=== PATIENT | male | born 1980 | race Caucasian/White ===

== ENCOUNTER 2016-12-02 16:03 | Emergency (ER) | payer SELFPAY ==
[2016-12-02 16:19] VITALS: O2SAT 97
--- NOTE | 2016-12-02 16:57 | ED PDOC ---
HPI: Chest Pain Time Seen by Provider: 12/02/16 16:23 Chief Complaint (Nursing): Palpitations Chief Complaint (Provider): chest pain, shortness of breath History Per: Patient Current Symptoms Are (Timing): Intermittent Episodes Additional Complaint(s): 36-year-old male presents to emergency department with diffuse chest pain and shortness of breath that started about one hour prior to arrival. Patient states he was walking when he felt chest pain start. Patient came right to ED for further evaluation. Patient does state he has had mild cough for the past few days with no fever or chills. He states lives in [place] and is here visiting for the week. He arrived last week via bus. He rates current chest pain as 5/10. Past Medical History Reviewed: Historical Data, Nursing Documentation, Vital Signs Vital Signs: Last Vital Signs Temp 98.5 F 12/02/16 16:16 Pulse 72 12/02/16 16:16 Resp 17 12/02/16 16:16 BP 125/75 12/02/16 16:16 Pulse Ox 97 12/02/16 18:38 - Medical History PMH: No Chronic Diseases - Surgical History Other surgeries: heart surgery at age 5 - Family History Family History: States: No Known Family Hx - Living Arrangements Living Arrangements: Alone - Social History Current smoker - smoking cessation education provided: Yes Alcohol: None Drugs: Denies - Home Medications Home Medications: Ambulatory Orders Medication Instructions Recorded Albuterol HFA [Ventolin HFA 90 1 puff IH ASDIR #1 unit 12/02/16 mcg/actuation (8 g)] Azithromycin [Zithromax] 250 mg PO DAILY #6 tab 12/02/16 - Allergies Allergies/Adverse Reactions: Allergies Allergy/AdvReac Type Severity Reaction Status Date / Time Penicillins Allergy RASH Verified 12/02/16 16:16 shellfish derived Allergy RASH Verified 12/02/16 16:16 Sulfa (Sulfonamide Allergy RASH Verified 12/02/16 16:16 Antibiotics) FAISAL Risk Score for UA/NSTEMI - FAISAL Risk Score Age > 64: NO 3 or more CAD Risk Factors: NO Known CAD (Stenosis greater than 50%): NO Aspirin use in past 7 days: NO Severe Angina: NO EKG ST changes greater than 0.5mm: NO Positive Cardiac Marker: NO FAISAL Score: 0 Risk %: 5% Curb-65 Severity Score - CURB-65 Severity Score Confusion: No Bun >19mg/dl (>7mmol/L): No Respiratory Rate greater than/equal to 30: No Systolic BP <90 or Diastolic BP less than/equal 60mmHg: No Age >64: No Curb-65 Score: 0 Percentage 30-day mortality: 0.6% Wells Criteria for PE - Wells Criteria for Pulmonary Embolism Clinical Signs and Symptoms of DVT: No P.E is #1 Diagnosis, or Equally Likely: No Heart Rate >100: No Immobilization at least 3 days;Surgery previous 4 weeks: No Previous, objectively diagnosed PE or DVT: No Hemoptysis: No Malignancy w/treatment within 6 months, or palliative: No Total Score: 0 Review of Systems ROS Statement: Except As Marked, All Systems Reviewed And Found Negative Constitutional: Negative for: Fever, Chills Cardiovascular: Positive for: Chest Pain. Negative for: Light Headedness Respiratory: Positive for: Cough, Shortness of Breath, SOB with Exertion, Pleuritic Pain. Negative for: Hemoptysis, Wheezing Gastrointestinal: Negative for: Nausea, Vomiting Neurological: Negative for: Headache, Dizziness Physical Exam - Reviewed Nursing Documentation Reviewed: Yes Vital Signs Reviewed: Yes - Physical Exam Appears: Positive for: Well, Non-toxic, No Acute Distress Head Exam: Positive for: ATRAUMATIC, NORMAL INSPECTION, NORMOCEPHALIC Eye Exam: Positive for: EOMI, Normal appearance, PERRL Cardiovascular/Chest: Positive for: Regular Rate, Rhythm Respiratory: Positive for: Decreased Breath Sounds, Rhonchi (scattered bilaterally). Negative for: Respiratory Distress Gastrointestinal/Abdominal: Positive for: Normal Exam, Soft. Negative for: Tenderness, Distended, Guarding, Rebound Back: Positive for: Normal Inspection. Negative for: L CVA Tenderness, R CVA Tenderness Extremity: Positive for: Normal ROM. Negative for: Pedal Edema, Calf Tenderness Neurologic/Psych: Positive for: Alert, Oriented - Laboratory Results Result Diagrams: 12/02/16 18:10 12/02/16 18:10 - ECG Interpretation Of ECG: NSR 80 bpm, no acute finding, reviewed by PA and ED attending O2 Sat by Pulse Oximetry: 97 Pulse Ox Interpretation: Normal - Other Rad CXR X-Ray: Interpreted by Me, Viewed By Me X-Ray Interpretation: Increased interstitial markings with no infiltrate Medical Decision Making Medical Decision Makin36 year old with chest pain and cough Plan: CBC CMP Trop D-Dimer CXR EKG IVF Duoneb x 1 Patient is aware of all diagnostic testing results, all questions answered. Patient feels better after DuoNeb treatment and was given prescriptions for ventolin inhaler and zithromax. Patient was counseled regarding smoking cessation. Disposition - Clinical Impression Clinical Impression: Cough, Pleuritic chest pain - Patient ED Disposition Is Patient to be Admitted: No Counseled Patient/Family Regarding: Studies Performed, Diagnosis, Need For Followup, Rx Given, Smoking Cessation - Disposition Referrals: [facility] [Outside] Disposition: Routine/Home Disposition Time: 19:06 Condition: STABLE Additional Instructions: Prescription meds as directed. Stop smoking. Follow-up with clinic in 2-3 days or with your primary care doctor when you return home. Prescriptions: Albuterol HFA [Ventolin HFA 90 mcg/actuation (8 g)] 1 puff IH ASDIR #1 unit Azithromycin [Zithromax] 250 mg PO DAILY #6 tab Instructions: Pleurisy (ED), Acute Cough (ED) Results - Lab Results Lab Results: 12/02/16 12/02/16 12/02/16 18:10 18:10 18:10 WBC 8.6 RBC 4.99 Hgb 14.4 Hct 44.1 MCV 88.4 MCH 28.9 MCHC 32.7 L RDW 14.2 Plt Count 177 MPV 8.8 Neut % (Auto) 59.5 Lymph % (Auto) 24.5 [place] % (Auto) 8.0 Eos % (Auto) 6.8 H Baso % (Auto) 1.2 Neut # 5.1 Lymph # 2.1 [place] # 0.7 Eos # 0.6 Baso # 0.1 D-Dimer, Quantitative 131 Sodium 141 Potassium 4.1 Chloride 104 Carbon Dioxide 27 Anion Gap 14 BUN 14 Creatinine 0.8 Est GFR ( Amer) > 60 Est GFR (Non-Af Amer) > 60 Random Glucose 89 Calcium 9.6 Total Bilirubin 0.8 AST 48 ALT 45 Alkaline Phosphatase 68 Troponin I < 0.0120 Total Protein 7.2 Albumin 4.3 Globulin 2.9 Albumin/Globulin Ratio 1.5
[2016-12-02] MEDS ORDERED: Sodium Chloride 0.9% 1,000 ML IV STA (17:25)
[2016-12-02] MEDS ORDERED: Albuterol-Ipratrop 3 mg / 0.5 (3 ml) UD INH STA (17:25)
--- NOTE | 2016-12-02 17:39 | RAD ---
HISTORY: shortness of breath COMPARISON: No prior. TECHNIQUE: Chest PA and lateral FINDINGS: LUNGS: The interstitial markings are slightly increased and coarsened with a few scattered peribronchial cuffing changes. Rule out sequela of reactive/inflammatory airway disease. No focal consolidation. PLEURA: No significant pleural effusion identified. No pneumothorax apparent. CARDIOVASCULAR: . Sternotomy wires. Heart size is within range of normal. OSSEOUS STRUCTURES: No significant abnormalities. VISUALIZED UPPER ABDOMEN: Normal. OTHER FINDINGS: None. IMPRESSION: The interstitial markings are slightly increased and coarsened with a few scattered peribronchial cuffing changes. Rule out sequela of reactive/inflammatory airway disease. No focal consolidation.
[2016-12-02 18:16] LABS: BASO # 0.1 K/uL (0.0-0.2); BASO % 1.2 % (0.0-2.0); EOS # 0.6 K/uL (0.0-0.7); EOS % 6.8 % (0.0-4.0); HEMATOCRIT 44.1 % (35.0-51.0); LYMPH # 2.1 K/uL (1.0-4.3); LYMPH % 24.5 % (20.0-40.0); MEAN CELL VOLUME 88.4 fl (80.0-94.0); MEAN CORPUSCULAR HEMOGLOBIN 28.9 pg (27.0-31.0); MEAN CORPUSCULAR HGB CONC 32.7 g/dL (33.0-37.0); MEAN PLATELET VOLUME 8.8 fl (7.2-11.7); MONO # 0.7 K/uL (0.0-0.8); NEUT # 5.1 K/uL (1.8-7.0); NEUT % 59.5 % (50.0-75.0); NRBC % 0.1 % (0.0-0.0); RED CELL DISTRIBUTION WIDTH 14.2 % (11.5-14.5); WHITE BLOOD COUNT 8.6 K/uL (4.8-10.8)
[2016-12-02 18:33] LABS: ALB/GLOB RATIO 1.5 (1.0-2.1); ALKALINE PHOSPHATASE 68 U/L (38-126); ALT/SGPT 45 U/L (21-72); AST/SGOT 48 U/L (17-59); BILIRUBIN,TOTAL 0.8 mg/dl (0.2-1.3); BLOOD UREA NITROGEN 14 mg/dl (9-20); CALCIUM 9.6 mg/dL (8.4-10.2); CARBON DIOXIDE 27 mmol/L (22-30); CHLORIDE 104 mmol/L (98-107); GFR AFRICAN-AMERICAN > 60; GLUCOSE,RANDOM 89 mg/dL (75-110); POTASSIUM 4.1 MMOL/L (3.6-5.0); SODIUM 141 mmol/l (132-148); TOTAL PROTEIN 7.2 G/DL (6.3-8.2)
[2016-12-02 19:18] VITALS: BP 132/70; PULSE 76; RESP 16; TEMP 97.9
== END 2016-12-02 19:18 | disposition home or self-care (01) ==
LOC: H.ER 16:03
DX: R07.9 Chest pain, unspecified (principal); R05 Cough; F17.200 Nicotine dependence, unspecified, uncomplicated; Z88.0 Allergy status to penicillin
CPT/HCPCS: 71020; 80053; 84484; 85025; 85378; 96360; 99282; J7040